=== PATIENT | female | born 1950 | race Caucasian/White ===

== ENCOUNTER 2023-07-30 09:57 | Emergency (ER) | payer OTHER ==
[~2023-07-30] VITALS: Ht 152.4 cm; Wt 63.5 kg
[2023-07-30 10:08] VITALS: BP_SYST 120; PULSE 80; RESP 18; TEMP 97.8; O2SAT 98
[2023-07-30 13:05] VITALS: BP_SYST 126; PULSE 80; RESP 16; TEMP 97.6; O2SAT 98
== END 2023-07-30 13:09 | disposition home or self-care (01) ==
LOC: SED 09:57
DX: S20.219A Contusion of unspecified front wall of thorax, initial encounter (principal); V49.49XA Driver injured in collision with other motor vehicles in traffic accident, initial encounter; Y93.89 Activity, other specified; Y92.89 Other specified places as the place of occurrence of the external cause; Y99.8 Other external cause status
CPT/HCPCS: 71045; 99283